=== PATIENT | female | born 1960 | race Two or more races ===

== ENCOUNTER → 2018-08-20 | Day surgery (SDC) | payer OTHER ==
[~2018-08-20] MED LIST: ADRENOID CAPSU1 EACH PO; ASA81 MG PO; ATORVASTATIN CA40 MG PO; COZAAR100 MG PO; METFORMIN HCL1000 M1 PO; VITAMIN D2000 UNIT PO
== END | disposition home or self-care (01) ==
LOC: ADM 08-18 09:15 → CIR.AMB 08-18 09:15
DX: N95.0 Postmenopausal bleeding (principal)